=== PATIENT | female | born 1950 | race American Indian/Alaskan Native ===

== ENCOUNTER 2018-04-20 09:41 | Outpatient (CLI) | payer MEDICARE ==
--- NOTE | 2018-04-21 12:06 | Mammography Report ---
BILATERAL DIGITAL SCREENING MAMMOGRAM with CAD : 04/20/18 09:41:00 CLINICAL: Routine screening. COMPARISON:08/04/15 and 08/19/13 FINDINGS: The breasts are heterogeneously dense, which may obscure small masses.A previously confirmed left inner cyst is stable. No mass, architectural distortion or suspicious calcifications. IMPRESSION: No mammographic evidence of malignancy. BI-RADS CATEGORY: 2 -- Benign RECOMMENDATION: Routine mammographic screening in one year. COMMENT: Patient follow-up letters are generated by our [employer] application.
== END 2018-04-20 09:42 | disposition home or self-care (01) ==
LOC: SPVWC 09:41
PROVIDERS: ATTEND Internal Medicine
DX: Z12.31 Encounter for screening mammogram for malignant neoplasm of breast (principal)
CPT/HCPCS: 77067